=== PATIENT | male | born 1975 | race Caucasian/White ===

== ENCOUNTER 2025-01-11 14:01 | Emergency (ER) | payer OTHER ==
[~2025-01-11] VITALS: Ht 170.2 cm; Wt 73.0 kg
[2025-01-11 14:09] VITALS: TEMP 36.8; O2SAT 98
[2025-01-11] MEDS: IBUPROFEN 600MG TABLET PO ONE (17:27)
[2025-01-11] MEDS: TETANUS, DIPHTHERIA, PERTUSSIS VAC/PF 0.5ML (>10YR OLD) IM ONE (17:28)
[2025-01-11] MEDS ORDERED: BO1 TP (18:47)
[2025-01-11] MEDS ORDERED: IBUP-2437 MT (18:47)
[2025-01-11 19:03] VITALS: BP 136/80; PULSE 68; RESP 18; O2SAT 100
== END 2025-01-11 19:17 | disposition home or self-care (01) ==
LOC: ER 14:16
DX: S61.210A Laceration without foreign body of right index finger without damage to nail, initial encounter (principal); W26.0XXA Contact with knife, initial encounter; Y93.89 Activity, other specified; Y92.89 Other specified places as the place of occurrence of the external cause; Y99.8 Other external cause status
CPT/HCPCS: 73140; 90471; 90715; 99283